=== PATIENT | female | born 1990 | race Caucasian/White ===

== ENCOUNTER 2021-12-23 07:10 | Day surgery (SDC) | payer OTHER ==
[2021-12-23] VITALS (200 sets, daily range): BP systolic 94–139; BP diastolic 44–96
[~2021-12-23] VITALS: Ht 170.2 cm; Wt 77.0 kg
[2021-12-23 07:42] LABS: HEMATOCRIT 42.7 % (37.0-47.0); IMMATURE GRANULOCYTES 0.1 % (0.0-5.0); MEAN CELL VOLUME 84.1 fL CALC (80.0-100.0); MEAN CORPUSCULAR HGB 29.5 pG CALC (26.0-32.0); MEAN CORPUSCULAR HGB CONC 35.1 g/dL CAL (32.0-36.0); NEUT# 3.13 thou/uL (2.00-7.15); RED BLOOD COUNT 5.08 mill/uL (4.20-5.60); RED CELL DISTRI WIDTH 11.6 % (11.5-15.5)
[2021-12-23 07:59] LABS: ALBUMIN 4.4 g/dL (3.2-5.0); ALKALINE PHOSPHATASE 59 u/l (38-126); ANION GAP 10 (6-22 (CALC)); BILIRUBIN, TOTAL 0.6 mg/dL (0.0-1.4); BUN 16 mg/dL (7-17); BUN/CREATININE RATIO 27 (12-20 (CALC)); CARBON DIOXIDE 29 mmol/l (22-30); CHLORIDE 103 mmol/l (95-108); CREATININE 0.6 mg/dL (0.5-1.0); GFR FOR AFR.AMER. > 60 ML/MIN (>=60 (CALC)); GFR OTHER RACES > 60 ML/MIN (>=60 (CALC)); POTASSIUM 4.4 mmol/l (3.5-5.1); SGOT/AST 52 u/l (14-36); SODIUM 138 mmol/l (137-146); TOTAL PROTEIN 7.8 g/dL (6.3-8.2)
[2021-12-23] MEDS ORDERED: AMBIEN5 MG PO (08:27)
[2021-12-23] MEDS ORDERED: CLONIDINE0.1 MG PO (13:51)
[2021-12-23] MEDS ORDERED: NALTREXONE50 MG PO (13:52)
[2021-12-23] MEDS ORDERED: KLONOPIN2 MG PO (13:53)
[2021-12-24 04:34] VITALS: BP 136/89
[2021-12-24 06:21] LABS: HEMATOCRIT 45.1 % (37.0-47.0); HEMOGLOBIN 15.9 g/dl (12.0-16.0); IMMATURE GRANULOCYTES 0.1 % (0.0-5.0); MEAN CELL VOLUME 83.8 fL CALC (80.0-100.0); MEAN CORPUSCULAR HGB 29.6 pG CALC (26.0-32.0); MEAN CORPUSCULAR HGB CONC 35.3 g/dL CAL (32.0-36.0); NEUT# 6.32 thou/uL (2.00-7.15); RED BLOOD COUNT 5.38 mill/uL (4.20-5.60); RED CELL DISTRI WIDTH 11.5 % (11.5-15.5)
[2021-12-24 06:50] LABS: ALBUMIN 4.5 g/dL (3.2-5.0); ALKALINE PHOSPHATASE 67 u/l (38-126); ANION GAP 14 (6-22 (CALC)); BILIRUBIN, TOTAL 0.6 mg/dL (0.0-1.4); BUN 13 mg/dL (7-17); BUN/CREATININE RATIO 24 (12-20 (CALC)); CARBON DIOXIDE 25 mmol/l (22-30); CHLORIDE 109 mmol/l (95-108); CREATININE 0.6 mg/dL (0.5-1.0); GFR FOR AFR.AMER. > 60 ML/MIN (>=60 (CALC)); GFR OTHER RACES > 60 ML/MIN (>=60 (CALC)); MAGNESIUM 2.4 mg/dL (1.6-2.3); SGOT/AST 43 u/l (14-36); SODIUM 144 mmol/l (137-146); TOTAL PROTEIN 7.6 g/dL (6.3-8.2)
[2021-12-24 07:37] VITALS: BP 109/91
[2021-12-24 10:15] VITALS: BP 104/58
== END 2021-12-24 15:38 | disposition home or self-care (01) | DRG 897 ==
LOC: ANR 07:10 → MS2 07:11 → ANR 12-24 15:38
PROVIDERS: ATTEND Anesthesiology
DX: F11.20 Opioid dependence, uncomplicated (principal)
CPT/HCPCS: J0131; J2354